=== PATIENT | female | born 1945 | race Caucasian/White ===

== ENCOUNTER 2017-07-08 15:28 | Inpatient (IN) | payer OTHER ==
[~2017-07-08] VITALS: Ht 165.1 cm; Wt 81.6 kg
--- NOTE | ~2017-07-08 | H ---
Formerly [facility] [place] [address] HISTORY AND PHYSICAL Name: ALEXANDRO AGUILAR Room #: 445-P [facility] IN M.R.#: [id number] Admission: 07/08/17 Attend Phys: J Luis Trevizo MD Discharge: Date of : 49 Report #: [id number] THIS REPORT FOR: //name// CC: JLuis Trevizo DATE OF SERVICE: 07/08/2017 CHIEF COMPLAINT: Cough, myalgias and chest hurts. HISTORY OF PRESENT ILLNESS: For the last 3 days, the patient has stayed home with a nasty cough, nasal congestion combined with nasal drainage, yellow nasal secretions, yellow sputum, myalgias and body aches, chest discomfort and fever. She came to the office where her temperature was 101.8, blood pressure 169/76, pulse 93. Her oropharynx was dry, and she appeared weak. Her lungs were clear, and the heart tones were normal. The rhythm was regular. The abdomen was soft and nontender. There was no edema. Her rapid influenza A and B were both positive. Her oxygen saturation on room air was 97%. With her weakness, dehydration and fever, admission to the hospital for intravenous fluids, aerosolized bronchodilators, and a full evaluation was indicated. She also indicated that her blood sugars were high in the middle 200s and occasionally over 300 despite her taking 30 units at least 3 times a day of rapid-acting insulin and 30 units of Levemir at bedtime. PAST MEDICAL HISTORY: Significant for ongoing chronic depression and difficulty with compliance with medications in the last several years. She has obesity and type 2 diabetes. She experienced diffuse uncontrolled itching and rash to oral medications that improved when she was switched to insulin several years ago. She is not regularly compliant with testing her sugars before meals. She has hypertension, GERD, chronic back pain with distant history of back surgery, neuropathy with numbness in the legs and feet, recent rectal bleeding. In 2016, she had a long encounter with chronic itching and vague skin rashes. She has chronic insomnia and gastroesophageal reflux disease. She has hyperlipidemia, but has been off of her statin medication for a while due to her chronic itching and skin rash. She has increased urinary frequency/overactive bladder. She has had recurrent dysphagia and underwent an EGD and dilatation by Dr. Parr on 05/31/2012. She had mild acid reflux and gastritis at that time. Colonoscopy was performed that same day with the excision of an adenomatous-appearing polyp that on pathology had lymphoid aggregate. Reactive gastropathy was seen in the antrum and a benign anastomotic ulcer was seen at the ileocolonic anastomosis. A jejunoileal bypass for weight loss had been [address] [address] HISTORY AND PHYSICAL Name: ALEXANDRO AGUILAR Dulce Room #: 445-P [facility] IN M.R.#: [id number] Admission: 07/08/17 Attend Phys: J Luis Trevizo MD Discharge: Date of : 49 Report #: [id number] performed in 1970s. Multiple medium sized diverticula were present in the distal colon. She is due for a followup colonoscopy this year. ALLERGIES: CODEINE, OXYCODONE, CAUSES HER TO ITCH, BUT SHE IS ABLE TO TAKE IT WHEN NEEDED. MEDICATIONS: She has been off of simvastatin for 1-2 years now because of her medication rash. She currently takes zolpidem 5 mg at bedtime and fluoxetine 40 mg daily from her psychiatrist, Dr. Davila. She takes ibuprofen 4 tablets twice or 3 times daily for her chronic back pain. She has not needed amlodipine 10 mg daily for hypertension recently. Levemir 30 mg at bedtime and NovoLog FlexPen 30 units 3 times daily, ignoring the sliding scale that she was given last year. REVIEW OF SYSTEMS: Negative. FAMILY HISTORY: Negative. PHYSICAL EXAMINATION: GENERAL: Shows a 72-year-old female, in moderate distress. HEENT: Remarkable for dry mucosa. There is mild paranasal sinus tenderness. NECK: Negative. LUNGS: Clear. HEART: S1 and S2 are normal and the rhythm is regular. ABDOMEN: Soft and nontender. EXTREMITIES: There is no edema in the extremities. NEUROLOGIC: Screening neurological examination was grossly intact. Rapid influenza office test was positive for both A and B influenza. ASSESSMENT: 1. Dehydration. Due to her illness, she has not been able to stay adequately hydrated with findings on physical exam. 2. Acute influenza A and influenza B. 3. Cough with yellow sputum. 4. Painful nasal and sinus congestion. 5. Fever. 6. Myalgias. 7. Uncontrolled type 2 diabetes, on insulin. 8. Hypertension. 9. Depression. 10. Hyperlipidemia that is currently untreated. 11. Skin rash and diffuse itching in 2016 that was much improved as medications were withdrawn. 12. Depression. 13. Insomnia. 14. Chronic back pain. Formerly [facility] [address] [place] [address] HISTORY AND PHYSICAL Name: ALEXANDRO AGUILAR Room #: 445-P [facility] IN M.R.#: [id number] Admission: 07/08/17 Attend Phys: J Luis Trevizo MD Discharge: Date of : 49 Report #: [id number] 15. Rectal bleeding this year -- she is due for a followup colonoscopy. 16. Other medical problems as in the history and physical. PLAN: She is admitted for further evaluation including blood gases and chest x-ray. Oseltamivir and intravenous fluids are being administered. Further evaluation as laboratory data becomes available. By: [id number] J Luis Trevizo MD /nt
--- NOTE | ~2017-07-08 | HC ---
[facility] [place] [address] CONSULTATION Name: ALEXANDRO AGUILAR Room #: 445-P AD[facility] IN M.R.#: [id number] Admission: 07/08/17 Attend Phys: J Luis Trevizo MD Discharge: Date of : 49 Report #: [id number] THIS REPORT FOR: //name// CC: J Luis Trevizo MD DATE OF SERVICE: 07/12/2017 PULMONARY CONSULTATION DATE OF SERVICE: 07/12/2017 REFERRING PROVIDER: Dr. J Luis Trevizo. REASON FOR CONSULTATION: Influenza. CHIEF COMPLAINT: Cough and shortness of breath. HISTORY OF PRESENT ILLNESS: Our group was asked to see this patient in consultation while hospitalized at [facility]. The patient is a very pleasant 72-year-old woman with a past pulmonary history significant only for recurrent lower respiratory infections defined as bronchitis, pneumonia by her report about once per year, most recent episode was about one year ago that required any intervention. She has been in her usual state of health until 2 days prior to admission where chief complaint of some cough productive of yellow sputum and general malaise and fever without nausea or vomiting, rested for 2 days. Since not improving, brought her to her primary care provider, subsequently admitted her with a positive influenza screen in the office, subsequent influenza screen here has been negative. The patient has been on Tamiflu and Rocephin since admission, is continuing to have some cough with some occasional yellow sputum production, chest discomfort only associated with cough. No hemoptysis and, over the last 24 hours, certainly no fever, chills, has been ambulating reasonably in her room, but has been on isolation for respiratory purposed, notes overall improvement. Continues to be on some bronchodilators. She also feels it has helped symptoms. The patient to be discharged later today, likely remain on current medications as described. ALLERGIES: Include CODEINE. PAST MEDICAL HISTORY: 1. History of morbid obesity, status post gastric bypass surgery in 1974. 2. Diabetes mellitus type 2. 3. Recurrent lower respiratory infections. 4. Hypertension. 5. Gastroesophageal reflux disease. 6. Peripheral neuropathy. [facility] [address] [place] [address] CONSULTATION Name: ALEXANDRO AGUILAR Room #: 445-P [facility] IN ..#: [id number] Admission: 07/08/17 Attend Phys: J Luis Trevizo MD Discharge: Date of : 49 Report #: [id number] 7. Insomnia. 8. Hyperlipidemia. OUTPATIENT MEDICATIONS: Include simvastatin, Paxil, p.r.n. ibuprofen, amlodipine, Levemir. SOCIAL HISTORY: Very remote history of tobacco use. No significant alcohol consumption. Lives with her and independently. FAMILY HISTORY: Negative for significant pulmonary disease. REVIEW OF SYSTEMS: CONSTITUTIONAL: No fever, chills, some general malaise. ENT: No upper respiratory congestion or rhinorrhea. CARDIOVASCULAR: No chest pains or palpitations. GASTROINTESTINAL: No nausea, vomiting, emesis, hematochezia, melena. GENITOURINARY: No dysuria, no frequency. INTEGUMENT: Denies any rash. MUSCULOSKELETAL: No joint pains or swelling. PHYSICAL EXAMINATION: VITAL SIGNS: Afebrile, pulse 80, respiratory rate 18, blood pressure 146/61, oxygen saturation 97%. GENERAL: This is a pleasant elderly woman in no distress. HEENT: Clear oropharynx, Mallampati 2 airway, no thrush. No erythema. NECK: Supple, no lymphadenopathy. LUNGS: Right basilar inspiratory crackles. No wheezes noted. CARDIOVASCULAR: Heart regular. No murmurs or gallops. ABDOMEN: Soft, nontender, no masses. EXTREMITIES: Warm, 2+ pulses, no edema. INTEGUMENT: No rash identified. LABORATORY DATA: White blood cell count 9014 on admission, hemoglobin 7.7, hematocrit 26, platelet count 166. Sodium is 140, potassium 3.8, chloride 108, bicarbonate 20, BUN 4, creatinine 0.6, glucose 131. Arterial blood gas on admission on room air revealed pH 7.44, pCO2 of 32, pO2 of 85, bicarbonate 21. Influenza screen here is negative. Sputum cultures with no growth to date. IMPRESSION: 1. Lower respiratory infection, possibly influenza, although screen here is negative, would continue with Tamiflu and consider change to doxycycline p.o. to cover both atypical organisms and community-acquired organisms. We will obtain a followup chest radiograph, initial chest radiograph is clear, but basilar crackles on exam. We will check followup imaging. 2. Iron deficiency anemia. [address] [address] CONSULTATION Name: ALEXANDRO AGUILAR [place] Room #: 445-P [facility] IN M.R.#: [id number] Admission: 07/08/17 Attend Phys: J Luis Trevizo MD Discharge: Date of : 49 Report #: [id number] SUGGESTIONS: 1. Meds to p.o. 2. Okay to discharge from pulmonary standpoint if x-ray relatively clear. 3. Follow up chest x-ray. 4. Await GI evaluation regarding iron deficiency anemia. Thank you for requesting our suggestions. Contact information provided to the patient should she desire followup in less than 3-4 weeks. To ensure complete resolution, would suggest discharging with p.r.n. albuterol inhaler as opposed to nebulizer therapy. No indication for systemic steroids at this time. By: [id number] Lele Toussaint MD /nt
[2017-07-08 17:10] VITALS: BP 144/59
[2017-07-08 18:38] LABS: ABG SAMPLE TYPE ARTERIAL; BE(vivo) -2.9 mmol/L (-2 to +3); HCO3 20.7 mmol/L (22.0-26.0); LACTATE 3.07 mmol/L (0.5-2.0); O2Hb 95.1 % (92.0-98.0); PCO2 31.6 mmHg (35.0-45.0); PO2 85.2 mmHg (80.0-100.0); STICK SITE R.BRACHIAL; pH 7.435 (7.360-7.450); sO2 96.8 % (92.0-98.0); tCO2 21.7 mmol/L (24.0-30.0)
[2017-07-08 19:49] VITALS: BP 121/48
[2017-07-08 19:50] VITALS: BP 121/48
[2017-07-08 21:52] LABS: ABSOLUTE NEUTROPHILS 9.8 thou/uL (1.4-8.2); BASOPHILS 1.5 % (0.0-2.0); EOSINOPHILS 1.8 % (0.0-3.0); HEMATOCRIT 29.1 % (37.0-47.0); HEMOGLOBIN 8.7 gm/dL (12.0-15.0); LYMPHOCYTES 19.1 % (24.0-44.0); MCH 20.9 pg (26.0-34.0); MCHC 29.9 g/dL (28.0-37.0); MCV 69.9 fL (80.0-100.0); MONOCYTES 7.5 % (1.0-8.0); PLATELET COUNT 201 thou/uL (150-400); POLYS 70.1 % (36.0-66.0); RBC 4.17 mil/uL (4.20-5.00); RDW 19.1 % (10.5-14.5); WBC 13.9 thou/uL (4.0-11.0)
[2017-07-08 21:54] LABS: MANUAL DIFF NO
[2017-07-08 22:06] LABS: ALBUMIN 3.6 g/dL (3.4-5.0); CALCIUM 8.7 mg/dL (8.5-10.1); CREATININE 0.8 mg/dL (0.6-1.0); POTASSIUM 3.3 mmol/L (3.5-5.1); TOTAL BILIRUBIN 1.3 mg/dL (<0.1-1.0); TOTAL PROTEIN 7.6 g/dL (6.4-8.2)
[2017-07-08 22:34] LABS: ANISOCYTOSIS 2+; HYPOCHROMASIA 2+; MICROCYTES 2+
[2017-07-09 04:06] LABS: GLYCOHEMOGLOBIN (HGB A1C) 5.3 % (4.8-5.6)
[2017-07-09 06:08] LABS: URINE BILIRUBIN NEGATIVE (Negative); URINE BLOOD NEGATIVE (Negative); URINE COLOR YELLOW; URINE GLUCOSE-RANDOM* TRACE (Negative); URINE KETONES NEGATIVE (Negative); URINE PROTEIN (DIPSTICK) NEGATIVE (Negative); URINE SPECIFIC GRAVITY 1.015 (1.003-1.035)
[2017-07-09 06:19] LABS: URINE LEUKOCYTES-REFLEX 1+ (Negative)
[2017-07-09 06:33] LABS: CASTS None Seen /LPF (None Seen); CRYSTALS None Seen /LPF (None Seen); SQUAMOUS 4-10 Moderate /LPF (0-3)
[2017-07-09 06:34] LABS: URINE RBC 0-2 Rare /HPF (0-2); URINE WBC-REFLEX 6-15 Few /HPF (0-5)
[2017-07-09 08:48] VITALS: BP 152/54
[2017-07-09 16:35] VITALS: BP 135/37
[2017-07-09 19:38] VITALS: BP 132/59
[2017-07-10 05:40] LABS: ABSOLUTE RETIC COUNT 0.1566 10^6/uL; HEMATOCRIT 24.3 % (37.0-47.0); HEMOGLOBIN 7.5 gm/dL (12.0-15.0); MCHC 30.9 g/dL (28.0-37.0); MCV 71.1 fL (80.0-100.0); OBSERVED RETIC COUNT 4.58 % (0.6-2.6); RBC 3.42 mil/uL (4.20-5.00); RDW 18.7 % (10.5-14.5); WBC 7.4 thou/uL (4.0-11.0)
[2017-07-10 05:42] VITALS: BP 155/84
[2017-07-10 05:53] LABS: CALCIUM 7.9 mg/dL (8.5-10.1); CREATININE 0.6 mg/dL (0.6-1.0); MAGNESIUM 1.9 mg/dL (1.8-2.4)
[2017-07-10 06:19] LABS: FOLIC ACID 5.9 ng/mL (8.6-58.9)
[2017-07-10 08:00] VITALS: BP 157/56
[2017-07-10 16:00] VITALS: BP 146/66
[2017-07-11 04:09] VITALS: BP 145/53
[2017-07-11 05:44] LABS: HEMATOCRIT 25.5 % (37.0-47.0); HEMOGLOBIN 7.7 gm/dL (12.0-15.0); MCH 21.6 pg (26.0-34.0); MCHC 30.3 g/dL (28.0-37.0); MCV 71.4 fL (80.0-100.0); RBC 3.57 mil/uL (4.20-5.00); RDW 19.4 % (10.5-14.5); WBC 8.9 thou/uL (4.0-11.0)
[2017-07-11 05:52] LABS: CALCIUM 8.3 mg/dL (8.5-10.1); CREATININE 0.6 mg/dL (0.6-1.0); POTASSIUM 3.8 mmol/L (3.5-5.1)
[2017-07-11 08:16] VITALS: BP 160/56
[2017-07-11 15:30] VITALS: BP 151/65
[2017-07-11 20:24] VITALS: BP 100/67
[2017-07-12 03:44] LABS: HEMATOCRIT 25.4 % (37.0-47.0); HEMOGLOBIN 7.6 gm/dL (12.0-15.0)
[2017-07-12 05:11] VITALS: BP 149/63
[2017-07-12 08:06] VITALS: BP 146/61
[2017-07-12] MEDS ORDERED: SUDOGEST30 MG PO (15:53)
[2017-07-12] MEDS ORDERED: OSELTAMIVIR PHO75 MG PO (15:53)
[2017-07-12] MEDS ORDERED: DOXYCYCLINE 10100 MG PO (15:53)
[2017-07-12] MEDS ORDERED: PROZAC40 MG PO (15:53)
[2017-07-12] MEDS ORDERED: BENZONATATE100 MG PO (15:53)
[2017-07-12] MEDS ORDERED: AMBIEN 5 MG TABL5 M1 PO (15:53)
[2017-07-12 16:29] VITALS: BP 146/61
[2017-07-12] MEDS ORDERED: HUMALOG100 UNIT/1 SUBQ (16:46)
[2017-07-12] MEDS ORDERED: LEVEMIR SUBQ (16:46)
[2017-07-12] MEDS ORDERED: POTASSIUM20 PO (16:52)
[2017-07-12] MEDS ORDERED: PROTONIX40 M1 PO (16:52)
[2017-07-14 04:11] LABS: INFLUENZA B Negative (Negative); METAPNEUMOVIRUS Negative (Negative)
== END 2017-07-12 17:40 | disposition home or self-care (01) | DRG 153 ==
LOC: 4S 15:28 → ENTRNSPT 07-12 17:26 → 4S 07-12 17:40
PROVIDERS: Internal Medicine
DX: J11.1 Influenza due to unidentified influenza virus with other respiratory manifestations (principal); E66.01 Morbid (severe) obesity due to excess calories; E11.42 Type 2 diabetes mellitus with diabetic polyneuropathy; K21.9 Gastro-esophageal reflux disease without esophagitis; I10 Essential (primary) hypertension; E78.5 Hyperlipidemia, unspecified; D50.9 Iron deficiency anemia, unspecified; F32.9 Major depressive disorder, single episode, unspecified; G89.29 Other chronic pain; M54.9 Dorsalgia, unspecified; E86.0 Dehydration; R09.81 Nasal congestion; M79.1 Myalgia; G47.00 Insomnia, unspecified; E11.65 Type 2 diabetes mellitus with hyperglycemia; E87.6 Hypokalemia; Z87.891 Personal history of nicotine dependence; Z98.84 Bariatric surgery status; Z68.30 Body mass index [BMI] 30.0-30.9, adult; Z88.6 Allergy status to analgesic agent; Z79.4 Long term (current) use of insulin; Z90.49 Acquired absence of other specified parts of digestive tract; Z28.21 Immunization not carried out because of patient refusal
CPT/HCPCS: 10195